=== PATIENT | female | born 1960 | race Caucasian/White ===

== ENCOUNTER → 2017-02-25 | Outpatient (CLI) | payer BC ==
[~2017-02-25] MED LIST: CIPRO PO; FLEXERIL10 MG PO; HCTZ PO; HYDROCODON-ACE1 EAC7 PO; LEVEMIR SQ; LIPITOR20 MG PO; METFORMIN HCL1000 M1 PO; MULTI VITAMIN1 EACH PO; OMEPRAZOLE20 M2 PO; PERCOCET5/325 PO; PRINIVIL5 MG PO; VICTOZA0.6 MG/0.1 SQ; VITAMIN B12-FO1 EACH PO; VITAMIN C1000 M2 PO
--- NOTE | ~2017-02-25 | MY29 ---
[facility] A Service of [facility] RADIOLOGY TEXT RESULTS PATIENT: MARYANN STEWART LOCATION: [facility] : 64 UNIT #: [id number] AGE: [address]: LISA LO MD SEX: F ORDER DR: [id number] [address] [id number] O MR#: [id number] Acc #: [id number] NAME: MARYANN STEWART : 1960 SEX: F STUDY DATE/TIME: 02/25/2017 15:55 UNIT: [facility] ROOM: STUDY DESCRIPTION: [facility] SCREENING W/ CAD BILAT Attending Physician: Lisa Lo M.D. Referring Physician: Lisa Lo M.D. Ordering Physician: Lisa Lo M.D. Primary Care Physician: Lisa Lo M.D. MEDICAL IMAGING REPORT This report is preliminary unless electronic signature is present EXAM Bilateral digital screening mammogram with CAD Date: 02/25/2017 HISTORY A 56-year-old female with no personal or family history of breast cancer. Current complaints. COMPARISON Bilateral screening mammogram 02/24/2016, 04/22/2014. FINDINGS CC and MLO views were obtained of each breast utilizing digital technique and reviewed with an FDA-approved CAD device. Scattered fibroglandular densities are present bilaterally. No suspicious nodule, architectural distortion or clustered microcalcification. Benign round calcifications bilaterally. IMPRESSION BIRADS 1. Negative screening mammogram. Routine screening mammogram is recommended in year. Patients over the age of 40 are entered into a reminder system with target due date for the next mammogram. A result letter will also be sent to the patient. BIRADS: 1 Negative Dictated by... [facility] A Service [facility] RADIOLOGY TEXT RESULTS PATIENT: MARYANN STEWART LOCATION: [facility] : 64 UNIT #: [id number] AGE: [address]: LISA LO MD SEX: F ORDER DR: Gilda Otero M.D. THIS IS AN ELECTRONICALLY VERIFIED REPORT Gilda Otero M.D. at 03/03/2017 8:37 AM DONA/sen TD: 02/26/2017 01:40 JOB #: [id number] MEDICAL IMAGING REPORT Page 1 of 1 COPY
== END | disposition home or self-care (01) ==
LOC: CWCC 15:30
DX: Z12.31 Encounter for screening mammogram for malignant neoplasm of breast (principal)
CPT/HCPCS: G0202